=== PATIENT | female | born 1960 | race Two or more races ===

== ENCOUNTER 2025-07-26 11:24 | Emergency (ER) | payer OTHER ==
[~2025-07-26] VITALS: Ht 157.5 cm; Wt 98.1 kg
--- NOTE | 2025-07-26 13:19 | ED.PDOC ---
History of Present Illness HPI Comments 65 y/o obese F, with a history of HTN, presents with c/c of flu-like symptoms. Patient endorses on having a headache, nonproductive cough, and congestion since 07/23/25. She denies any further acute symptoms. Patient, upon arrival to ED triage, was found hypertensive at 180/83. Patient comments on not taking her HTN medication, this morning. Chief Complaint: Flu like Time Seen by MD: 01:10 Reviewed Notes: Nurses Notes, Medications, Allergies Allergies: Coded Allergies: Codeine (Verified Allergy, Unknown, 07/26/25) Shellfish Allergy (Verified Allergy, Unknown, 07/26/25) Information Source: Patient Mode of Arrival: Ambulatory Severity: Moderate Timing: Hours Duration: Since onset Prehospital treatment: None Past Medical History PAST MEDICAL HISTORY: HTN Surgical History: Denies all surgeries PARTS ADVISOR History: Denies all PARTS ADVISOR Hx Family History Family History: Unknown Social History Smoker: Non-Smoker Alcohol: Denies ETOH Use Drugs: Denies Drug Use Lives In: Home All Other Systems: Reviewed and Negative (Comprehensive review of systems are negative unless stated in HPI) Physical Exam General Appearance: No Apparent Distress, Normal HEENT: Normal ENT Inspection, Pharynx Normal, TMs Normal Neck: Full Range of Motion, Non-Tender, Normal, Normal Inspection Respiratory: Chest Non-Tender, Lungs Clear, No Accessory Muscle Use, No Respiratory Distress, Normal Breath Sounds, Other (nonproductive cough ) Cardiovascular: No Edema, No JVD, No Murmur, No Gallop, Normal Peripheral Pulses, Regular Rate/Rhythm Breast Exam: Deferred Gastrointestinal: No Organomegaly, Non Tender, No Pulsatile Mass, Normal Bowel Sounds, Soft Genitalia: Deferred Pelvic: Deferred Rectal: Deferred Extremities: No calf tenderness, Normal capillary refill, Normal inspection, Normal range of motion, Non-tender, No pedal edema Musculoskeletal : Apperance: Normal Neurologic: Alert, 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 Was a procedure done?: No Differential Dx Considerations may include: viral, URI, PNA, hypertensive emergency, noncompliance, among others X-Ray, Labs, Meds, VS Vital Signs Date Time Temp Pulse Resp B/P (MAP) Pulse Ox O2 Delivery O2 Flow Rate FiO2 07/26/25 11:27 98.3 93 19 180/83 95 98.3 Time of 1ST Reevaluation: 01:40 Reevaluation 1ST: Unchanged Patient Education/Counseling: Diagnosis, Treatment, Need For Follow Up Family Education/Counseling: No Family Present SEPSIS Sepsis Screen Date sepsis recognized/suspect: Jul 26, 2025 Time Sepsis recognized/suspect: 1130 Recent Procedure: No On Antibiotic Therapy: No Respiratory Rate >20: No Heart Rate >90: No Temp<36 C (96.8 F) or >38.3 C: No SBP <90 or MAP <65 mmHG: No New Acute Mental Status Change: No Is the patient on CPAP, BIPAP,: No Physician Orders Chest Portable (07/26/25 13:14) Chest Two Views Routine (07/26/25 14:15) Vital Signs Date Time Temp Pulse Resp B/P (MAP) Pulse Ox O2 Delivery O2 Flow Rate FiO2 07/26/25 11:27 98.3 93 19 180/83 95 98.3 Departure 1 Departure Time of Disposition: 16:07 (Patient likely with a viral syndrome. We will discharge patient home with outpatient follow up) Impression: Primary Impression: Acute viral syndrome Disposition: 01 HOME / SELF CARE / HOMELESS Condition: Stable Additional Instructions: You likely have a viral illness. It is important to stay well rested and well hydrated. You can take Tylenol and Motrin as needed for pain and fever. For a sore throat you can drink warm tea with honey. You can take [id number] pseudoephedrine for nasal congestion. He should follow up with your regular doctor within 1 week to ensure you are doing better. If your symptoms worsen or you have any other concerns please return to the emergency room. Discharged With: Self Critical Care Note Critical Care Time?: No Stability Stability form required: No Heart Score Heart Score: Heart Score Response (Comments) Value History N/A 0 EKG N/A 0 Age N/A 0 Risk Factors N/A 0 Troponin N/A 0 Total 0 I personally scribed for ASIA JC MD ([email or web address]) on 07/26/25 at 13:19. Electronically submitted by Jordan Cruz [email or web address]). ASIA JC MD Jul 26, 2025 13:19
--- NOTE | 2025-07-26 13:56 | DVH ---
AP portable chest CLINICAL INDICATION: cough FINDINGS: Heart size borderline. The aorta is slightly tortuous. No infiltrates. Question of 1 cm nodular density versus confluence of shadows in the right upper lung zone underlying the right posterior 6 rib. There are surgical clips in the right upper quadrant IMPRESSION: 1. No acute infiltrates. 2. Question nodule versus confluence of shadows right upper lung zone. Recommend additional views of the chest
--- NOTE | 2025-07-26 14:52 | DVH ---
XY CHEST TWO VIEWS ROUTINE INDICATION: per radiologist TECHNIQUE: Two views of the chest COMPARISON: XY CHEST PORTABLE on DOS: 07/26/25 FINDINGS/IMPRESSION: LUNGS: No pleural effusion, consolidation, or pneumothorax. MEDIASTINUM: Unremarkable. BONES: No acute osseous abnormality. OTHER: Surgical clips in the right upper quadrant
[2025-07-26] MEDS: ACETAMINOPHEN 325 MG TAB PO ONE (19:04)
[2025-07-26] MEDS: PSEUDOEPHEDRINE HCL 30 MG TAB PO ONE (19:04)
[2025-07-26] MEDS: LISINOPRIL 20 MG TAB PO ONE (19:04)
[2025-07-26 19:06] VITALS: BP 134/86; PULSE 90; RESP 15; TEMP 98; O2SAT 97
== END 2025-07-26 19:14 | disposition home or self-care (01) ==
LOC: ER 11:24
DX: B34.9 Viral infection, unspecified (principal); I10 Essential (primary) hypertension; Z88.5 Allergy status to narcotic agent
CPT/HCPCS: 71045; 71046